=== PATIENT | female | born 1980 | race Caucasian/White ===

== ENCOUNTER 2018-01-08 00:38 | Inpatient (IN) | payer OTHER, MEDICAID ==
[~2018-01-08] VITALS: Ht 157.5 cm; Wt 115.7 kg
--- NOTE | ~2018-01-08 | PROC ---
[address] [address] PROCEDURE REPORT Name: KIMMIE BEDOLLA Room: [address] IN .R.#: [id number] Admission: 01/08/18 Attend Phys: Garth Turcios MD Discharge: Date of : 78 Report #: [id number] THIS REPORT FOR: //name// For GI report, please see the Provation report in Perceptive 7 content. By: 1008Medical Records Staff UMESH /LILLIAN
[~2018-01-08 00:38] MED LIST: ACETAMINOPHEN325 M1 PO; AUGMENTIN 875875 MG PO; CEPHALEXIN 500500 M3 PO; IBUPROFEN 800800 M1 PO; KEFLEX500 MG PO; NORCO 5-325 TA1 EACH PO; NORTRIPTYLINE H10 M1 PO; SYMBICORT160 MCG/4. INH; TUSSIONEX PENN473 ML PO; VENTOLIN HFA 1818 GM INH; ZPAK PO
[2018-01-08 00:48] VITALS: BP 151/85
[2018-01-08 01:31] LABS: HEMATOCRIT 35.2 % (37.0-47.0); HEMOGLOBIN 11.8 gm/dL (12.0-15.0); MCH 27.3 pg (26.0-34.0); MCHC 33.4 g/dL (28.0-37.0); MCV 81.6 fL (80.0-100.0); MPV 7.5 fl. (7.2-11.1); NUCLEATED RBCS 0 /100WBC; PLATELET COUNT* 289 thou/uL (150-400); RBC 4.31 mil/uL (4.20-5.00); RDW-CV 14.6 % (10.5-14.5); WBC 6.5 thou/uL (4.0-11.0)
[2018-01-08 01:40] LABS: CALCIUM 8.7 mg/dL (8.5-10.1); CREATININE 0.6 mg/dL (0.6-1.3); POTASSIUM 4.2 mmol/L (3.5-5.1)
[2018-01-08 01:50] LABS: ALBUMIN 2.9 g/dL (3.4-5.0); TOTAL BILIRUBIN 0.4 mg/dL (<0.1-1.0); TOTAL PROTEIN 7.4 g/dL (6.4-8.2)
[2018-01-08 01:56] LABS: ABSOLUTE LYMPHOCYTES 0.2 thou/uL (0.8-5.3); ABSOLUTE MONOCYTES 0.3 thou/uL (0.0-1.2); PLATELET ESTIMATE ADEQUATE
[2018-01-08 04:16] LABS: URINE BILIRUBIN NEGATIVE (Negative); URINE BLOOD NEGATIVE (Negative); URINE CLARITY CLEAR; URINE COLOR YELLOW; URINE GLUCOSE-RANDOM NEGATIVE (Negative); URINE KETONES 2+ (Negative); URINE LEUKOCYTES-REFLEX NEGATIVE (Negative); URINE NITRITE-REFLEX NEGATIVE (Negative); URINE PROTEIN NEGATIVE (Negative); URINE SPECIFIC GRAVITY <= 1.005 (1.005-1.030); URINE UROBILINOGEN 0.2 E.U./dl (0.2-1.0)
[2018-01-08 04:55] VITALS: BP 109/61
[2018-01-08 05:00] VITALS: BP 141/85
[2018-01-08 09:00] VITALS: BP 117/52
[2018-01-08 11:11] LABS: HEMATOCRIT 31.1 % (37.0-47.0); HEMOGLOBIN 10.4 gm/dL (12.0-15.0); MCH 27.3 pg (26.0-34.0); MCHC 33.4 g/dL (28.0-37.0); MCV 81.6 fL (80.0-100.0); MPV 7.4 fl. (7.2-11.1); NUCLEATED RBCS 0 /100WBC; PLATELET COUNT* 244 thou/uL (150-400); RBC 3.81 mil/uL (4.20-5.00); RDW-CV 14.4 % (10.5-14.5); WBC 4.3 thou/uL (4.0-11.0)
[2018-01-08 11:21] LABS: CALCIUM 7.7 mg/dL (8.5-10.1); CREATININE 0.6 mg/dL (0.6-1.3); POTASSIUM 3.5 mmol/L (3.5-5.1)
[2018-01-08 11:35] LABS: ALBUMIN 2.5 g/dL (3.4-5.0); MAGNESIUM 1.5 mg/dL (1.8-2.4); PHOSPHORUS* 2.4 mg/dL (2.5-4.9); TOTAL BILIRUBIN 0.3 mg/dL (<0.1-1.0); TOTAL PROTEIN 5.9 g/dL (6.4-8.2)
[2018-01-08 11:50] LABS: ABSOLUTE LYMPHOCYTES 0.3 thou/uL (0.8-5.3); ABSOLUTE NEUTROPHILS 3.9 thou/uL (1.6-8.1); PLATELET ESTIMATE ADEQUATE
[2018-01-08 11:51] LABS: ANISOCYTOSIS 1+; POIKILOCYTOSIS 1+
[2018-01-08 16:50] VITALS: BP 116/62
--- NOTE | 2018-01-08 17:06 | NUR ---
PATIENT GIVEN PRN ZOFRAN AND DILAUDID THIS SHIFT FOR PAIN AND VOMITTING. IVF CONTINUES INFUSING, SCHED ABX INFUSED ORDERED. MG REPLACED IV FOR LAB VALUE OF 1.5. PATIENT EATING SMALL AMOUNTS OF CLEAR LIQUIDS. PATIENT VOMITTING X 2 THIS SHIFT. UP AD BRITT.
[2018-01-08 21:38] VITALS: BP 110/58
[2018-01-09 00:31] VITALS: BP 110/58
[2018-01-09 04:11] LABS: HEMATOCRIT 31.4 % (37.0-47.0); HEMOGLOBIN 10.6 gm/dL (12.0-15.0); MCH 27.8 pg (26.0-34.0); MCHC 33.8 g/dL (28.0-37.0); MCV 82.3 fL (80.0-100.0); MPV 7.7 fl. (7.2-11.1); RBC 3.82 mil/uL (4.20-5.00); RDW-CV 14.4 % (10.5-14.5)
[2018-01-09 04:39] LABS: CALCIUM 7.8 mg/dL (8.5-10.1); CREATININE 0.6 mg/dL (0.6-1.3); MAGNESIUM 1.8 mg/dL (1.8-2.4); POTASSIUM 4.3 mmol/L (3.5-5.1)
[2018-01-09 08:00] VITALS: BP 98/54
--- NOTE | 2018-01-09 16:40 | NUR ---
SW met with pt to complete initial assessment, introduce self, and SW role. Pt alert and oriented. Pt lives at home independently. Pt has sisters who lives nearby and can be of support if needed. Pt does not anticipate any dc needs. SW to continue to follow.
[2018-01-09 17:03] VITALS: BP 113/67
[2018-01-10] VITALS: BP 100/63
[2018-01-10 03:56] LABS: HEMATOCRIT 27.8 % (37.0-47.0); HEMOGLOBIN 9.2 gm/dL (12.0-15.0); MCH 27.3 pg (26.0-34.0); MCHC 33.2 g/dL (28.0-37.0); MPV 7.9 fl. (7.2-11.1); RBC 3.39 mil/uL (4.20-5.00); RDW-CV 14.6 % (10.5-14.5); WBC 3.1 thou/uL (4.0-11.0)
[2018-01-10 04:11] LABS: CALCIUM 7.6 mg/dL (8.5-10.1); CREATININE 0.6 mg/dL (0.6-1.3); MAGNESIUM 1.5 mg/dL (1.8-2.4); POTASSIUM 3.9 mmol/L (3.5-5.1)
--- NOTE | 2018-01-10 04:52 | NUR ---
PATIENT SLEPT WELL DURING THIS SHIFT. PT C/O HEADACHE X2 AND RECEIVED FENTANYL 1MG IV X1 AND TYLENOL X1. PT SLEEPING AT THIS TIME. PT UP TO BATHROOM WITH SLOW STEADY GAIT. FLUIDS INFUSING PER DR ORDER. FREQUENTLY USED ITEMS AND CALL LIGHT WITHIN REACH. SIDERAILS UPX2. WILL CONTINUE TO MONITOR.
[2018-01-10 08:00] VITALS: BP 100/53
[2018-01-10 15:41] VITALS: BP 116/72
--- NOTE | 2018-01-10 18:51 | NUR ---
RESUMED CARE THIS AM. ALL CONSULTS CALLED IN. PATIENT TO BE NPO AFTER MIDNIGHT FOR US ABD TOMORROW. NEW IV ACCESS TO LEFT AC, SHAHNAZ IVF AND IV ABT WITHOUT ISSUE. RESTING QUIETLY IN BED, ABLE TO VOICE NEEDS/WANTS, CALL LIGHT IN REACH, PLAN OF CARE REVIEWED WITH PATIENT, DENIES QUESTIONS, PROGRESSING TOWARD GOALS.
[2018-01-10 23:57] VITALS: BP 133/75
[2018-01-11 04:19] LABS: HEMATOCRIT 28.7 % (37.0-47.0); HEMOGLOBIN 9.4 gm/dL (12.0-15.0); MCH 26.8 pg (26.0-34.0); MCHC 32.7 g/dL (28.0-37.0); RBC 3.5 mil/uL (4.20-5.00); RDW-CV 14.4 % (10.5-14.5); WBC 4.2 thou/uL (4.0-11.0)
[2018-01-11 04:49] LABS: ALBUMIN 2.3 g/dL (3.4-5.0); CREATININE 0.5 mg/dL (0.6-1.3); MAGNESIUM 1.6 mg/dL (1.8-2.4); POTASSIUM 3.5 mmol/L (3.5-5.1); TOTAL BILIRUBIN 0.2 mg/dL (<0.1-1.0); TOTAL PROTEIN 5.6 g/dL (6.4-8.2)
--- NOTE | 2018-01-11 06:47 | NUR ---
PT SLEPT OFF AND ON OVERNIGHT, CO LEFT LOW ABD PAIN, IV PAIN MED GIVEN SEVERAL TIMES. UP AD BRITT IN ROOM TO BR TO VOID AND REPORTS LOOSE STOOL. HAS BEEN NPO SINCE MIDNIGHT FOR ABD US. LAC IVF INFUSING PER PUMP, ABX GIVEN ORDERED, MAG INFUSED. AOX4, ABLE TO MAKE NEEDS KNOWN. CLEARS TOLERATED WITHOUT N/V BEFORE NPO STATUS.
[2018-01-11 08:00] VITALS: BP 120/76
--- NOTE | 2018-01-11 11:20 | CON ---
[address] [address] CONSULTATION Name: JAYCEROHANKIMMIE L Room: [address] IN .R.#: [id number] Admission: 01/08/18 Attend Phys: Garth Turcios MD Discharge: Date of : 78 Report #: [id number] THIS REPORT FOR: //name// CC: Garth Prasad DATE OF SERVICE: 01/10/2018 REFERRING PHYSICIAN: Dr. Barraza. REASON FOR CONSULTATION: Left renal mass. HISTORY OF PRESENT ILLNESS: This is a 37-year-old female, admitted with abdominal pain, fever, chills, nausea and vomiting, and back pain. She reports at this time though symptoms are much better. Urology was consulted about an incidentally noted left renal mass. The patient denies any prior history of renal problems. She denies flank pain, hematuria, dysuria or difficulty voiding. She denies any history of urinary tract surgery. PAST MEDICAL HISTORY: As above. Also, has a history of diverticulitis. She states she is otherwise healthy. PAST SURGICAL HISTORY: She says she has had biopsies of pulmonary nodules, biopsy of a thyroid lesion, and resection of a benign abdominal wall mass as well as a jaw surgery. MEDICATION: List is reviewed. FAMILY HISTORY: She does not know of any renal disease in the family. SOCIAL HISTORY: She denies use of tobacco or alcohol. REVIEW OF SYSTEMS: As per history of present illness. No fever or chills. No chest pain, shortness of breath, palpitations. No cough. No weakness. PHYSICAL EXAMINATION: VITAL SIGNS: Temperature 36.8, pulse 80, respirations 14, blood pressure 100/53. GENERAL: This is a 37-year-old female, in no acute distress. She is awake, alert and answers questions appropriately. HEENT: Normocephalic, atraumatic. NECK: Reveals no JVD. Neck is supple. RESPIRATORY: Effort and excursion are normal. CARDIAC: Rhythm is regular. Radial pulses are palpable. EXTREMITIES: Warm. Moves all extremities well. No peripheral edema. ABDOMEN: Soft, nontender, nondistended. Spine [place] [address] CONSULTATION Name: KIMMIE BEDOLLA Room: [address] IN [facility]#: [id number] Admission: 01/08/18 Attend Phys: Garth Turcios MD Discharge: Date of : 78 Report #: [id number] nontender. LABORATORY DATA: Include an unremarkable urinalysis. Sodium 138, potassium 3.9, chloride 103, CO2 is 25, BUN 6, creatinine 0.6, glucose 85. Hemoglobin 9.2, white count 3.1, platelet count 189,000. CT scan of the abdomen and pelvis with contrast reveals from a urologic standpoint a 12 x 16 mm complex mass in the left kidney, which may have some fat content. 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 Findings were discussed with the patient. I advised that the lesion is incompletely characterized by this study and that MRI with contrast would likely be helpful. I explained the reasoning for that and the patient agrees. IMPRESSION: Indeterminate left renal lesion with possible fat content. PLAN: Check MRI of the abdomen with contrast to characterize further. Of note, the patient has had a CT of the chest revealing a thyroid mass and multiple pulmonary nodules. I will defer any further evaluation and management of non-urologic imaging findings on the CT scans to the primary service and any consultants they deem necessary. The patient reports that she has been aware of the nodules in the lung and the thyroid mass and had biopsies of these and been told they were benign. We will follow along. <ELECTRONICALLY SIGNED> By: Stevenson Lynn MD 01/11/18 1120 1454 [id number] Lynn MD /nt
[2018-01-11 16:10] VITALS: BP 130/71
[2018-01-11 21:00] VITALS: BP 122/77
--- NOTE | 2018-01-12 05:29 | NUR ---
PATIENT HAS REMAINED ALERT AND ORIENTED X 4 THROUGHOUT THE SHIFT AND RESTING AT INTERVALS ON HOURLY ROUNDS. UP INDEPENDENTLY IN ROOM. STATED LOOSE BM AT HS. IV PAIN AND NAUSEA MEDS X 2 EACH. VITAL SIGNS STABLE. NPO AT MIDNIGHT FOR TESTING THIS AM. CONTINUE TO MONITOR.
[2018-01-12 08:35] VITALS: BP 108/71
[2018-01-12] MEDS ORDERED: FLAGYL500 MG PO (09:57)
[2018-01-12] MEDS ORDERED: CIPRO500 MG PO (09:57)
[2018-01-12] MEDS ORDERED: LEVSIN0.125 MG PO (09:57)
[2018-01-12] MEDS ORDERED: PHENERGAN 25 MG25 M1 PO (09:57)
--- NOTE | 2018-01-12 10:50 | CON ---
[address] [address] CONSULTATION Name: KIMMIE BEDOLLA Room: [address] IN M.R.#: [id number] Admission: 01/08/18 Attend Phys: Garth Turcios MD Discharge: Date of : 78 Report #: [id number] THIS REPORT FOR: //name// CC: Garth Prasad DATE OF SERVICE: 01/11/2018 REQUESTING PHYSICIAN: Dr. Damon. INDICATION FOR CONSULTATION: Lung nodules. HISTORY OF PRESENT ILLNESS: A 37-year-old female. She has a history of lung nodules. These have been followed in the past by Dr. Rodas and Dr. Nj according to the patient, I do not have records available. The patient has had previous workup done, she states, through our office and also through [facility], and Dr. Rodas has done a bronchoscopy in the past as well. The patient has never had a CT-guided biopsy performed. It is not known to me as to whether fungal markers were performed at some point. At this time, the patient is here with abdominal complaints, has had nausea, vomiting as well as abdominal pain as well as diarrhea. She does not have any respiratory complaints at this time. REVIEW OF SYSTEMS: The patient has had disturbed sleep at night as well as sleepiness during the day. She does not have calf pain. She denies any cough, shortness of breath or upper respiratory complaints. She did have a fever up to 37.9 degrees Celsius earlier this admission. PAST MEDICAL HISTORY: Lung nodules as described above, , joint surgery, tonsillitis requiring endotracheal intubation in 2014, migraines, abdominal mass resection. I do not have records available, the patient states that this was benign. There is also an incidental finding of a left renal mass on the most recent CT abdomen. SOCIAL HISTORY: Lifetime nonsmoker. No known history of heavy alcohol use or illegal drug use. CURRENT MEDICATIONS: List in [employer], reviewed. ALLERGIES: No known drug allergies. PHYSICAL EXAMINATION: GENERAL: Alert, awake and oriented. VITAL SIGNS: In the records reviewed. HEENT: There is no throat erythema. [place] [address] [address] CONSULTATION Name: KIMMIE BEDOLLA Room: [address]#: [id number] Admission: 01/08/18 Attend Phys: Garth Turcios MD Discharge: Date of : 78 Report #: [id number] NECK: Does not show raised JVP. CHEST: Clear to auscultation. HEART: Regular, no murmur. ABDOMEN: Soft. LOWER EXTREMITIES: Show no edema, no calf tenderness. LABORATORY DATA: The patient's lab work as well as CT of the chest as well as abdomen and pelvis films are in the records and reviewed. The patient's CT chest films are also reviewed. ASSESSMENT AND PLAN: 1. Multiple lung nodules. There are large lung nodules noted bilaterally. The largest one of these appears to be more than 2 cm in size. The patient has had previous workup through our office as well as [facility] as discussed above. I do not, however, have these records available. The patient says that she has previously also had a PET scan at [facility]. I do not have the same available at this time either. At this time, it appears likely to me that these nodules are secondary to a fungal infection, possibly an old already healed fungal infection leading to scarring. Based on the data available to me, I cannot rule out a metastatic malignancy. However, if the patient has had workup at [facility] previously as she describes then it appears likely that this was ruled out or considered unlikely. At this time, I would go ahead and obtain the last CT films from [facility] and will request the radiologist to compare. If the patient has not previously had fungal markers, then obtaining fungal serologies as well as urine for histoplasma antigen would be reasonable. In case there is a significant worsening of her lung nodules compared with previous CT, then in that case it should be possible to biopsy one of these nodules which is next to the pleura. An alternate approach, in case there is in fact worsening, will be to obtain a repeat PET scan, but we would start by obtaining previous records and obtaining comparison first. 2. Hypersomnia. Her history is consistent with obstructive sleep apnea. Suggest obtaining an outpatient sleep study, would also benefit from weight loss. 3. Renal mass/past medical history of resection of an abdominal mass, see discussion above. The Urology Service is evaluating now. 4. Nausea, vomiting, diarrhea/abdominal pain. Management deferred to other services. [address] [place] [address] CONSULTATION Name: KIMMIE BEDOLLA Room: [address] IN M.R.#: [id number] Admission: 01/08/18 Attend Phys: Garth Turcios MD Discharge: Date of : 79 Report #: [id number] Thanks for this consultation. <ELECTRONICALLY SIGNED> By: Mary Sheffield MD 01/12/18 1050 1151 [id number] Morse MD /nt
[2018-01-12 11:19] VITALS: BP 108/71; BP 110/72
[2018-01-12 13:34] VITALS: BP 110/72
[2018-01-12 13:36] LABS: % SATURATION 11 % (20-39); IRON 23 ug/dL (50-175)
[2018-01-12 15:18] VITALS: BP 110/72
[2018-01-12 15:40] VITALS: BP 100/57
[2018-01-12] MEDS ORDERED: PROTONIX40 M1 PO (16:47)
--- NOTE | 2018-01-12 16:52 | NUR ---
PATIENT DOWN FOR EGD THIS AFTERNOON, ESOPHAGITIS AND HIATAL HERNIA NOTED. PROTONIX ORDERED BID PER GI. SCHED IV ABX INFUSED ORDERED. PATIENT REQUESTING PRN DILAUDID AND ZOFRAN FOR PAIN AND NAUSEA. ABD MRI THIS EVENING, AWAITING RESULTS. PATIENT GIVEN CLEAR LIQUIDS AFTER RETURNING FROM TEST AND IF TOLERATING CAN ADVANCE TO REG DIET. IF PATIENT ABLE TO TOLERATE REG DIET AND MRI RESULTS NEGATIVE THEN PATIENT MAY DISCHARGE HOME. VITALS STABLE AFTER RETURNING FROM PACU AND MRI.
[2018-01-12 21:43] VITALS: BP 125/76
--- NOTE | 2018-01-13 05:57 | NUR ---
PT SLEPT WELL OVERNIGHT, AWAKENED ONCE REQUESTING TYLENOL AND ZOFRAN-GIVEN. NO EMESIS, PT STATES SHE TOLERATED REGULAR DINNER IN SMALL AMOUNTS WITHOUT EMESIS. LAC SL, ABX GIVEN ORDERED. AM LAB DRAWN. POSSIBLE DC HOME TODAY. UP AD BRITT IN ROOM WITHOUT DIFFICULTY, UP TO BATHROOM TO VOID.ABLE TO USE CALL LITE AND MAKE NEEDS KNOWN.
[2018-01-13 07:35] VITALS: BP 98/59
--- NOTE | 2018-01-13 10:20 | NUR ---
PATIENT TOLERATED REG DIET THIS AM. NO COMPLAINTS OF PAIN OR NAUSEA. IV DC'D. VERBALIZES UNDERSTANDING OF PAPERWORK, SCRIPTS CALLED INTO [facility] PER PATIENT REQUEST. PATIENT AMBULATED OUT OF HOSPITAL WITH THIS NURSE AND ALL BELONGINGS.
--- NOTE | 2018-01-20 16:18 | CON ---
[address] [address] CONSULTATION Name: JAYCEROHANKIMMIE Room: [address] IN .R.#: [id number] Admission: 01/08/18 Attend Phys: Garth Turcios MD Discharge: 01/13/18 Date of : 78 Report #: [id number] THIS REPORT FOR: //name// CC: Garth Prasad DATE OF SERVICE: 01/12/2018 ADDENDUM REASON FOR CONSULT: Abdominal pain, nausea, vomiting and dyspepsia. I have personally seen and examined the patient and reviewed labs and imaging. The patient with a history of migraine headaches who takes ibuprofen at least 3-4 times a week. She presented with abdominal pain and had a CT, which was suggestive of left-sided diverticulitis. She has been on antibiotics since admission. She also complains of nausea, vomiting, early satiety and dyspepsia. She reports that most times she cannot tolerate solids. These symptoms have been going on for a couple of weeks. We will consider upper endoscopy to further evaluate her upper GI symptoms and also her anemia. She will need a colonoscopy in 6 weeks since she has had a diverticulitis in this admission. We will make further recommendation when her upper endoscopy is complete. <ELECTRONICALLY SIGNED> By: Richard Farrell MD 01/20/18 1618 1416 0031Richard Farrell MD /noah
--- NOTE | 2018-01-20 16:18 | CON ---
[address] [address] CONSULTATION Name: KIMMIE BEDOLLA Room: [address] IN M.R.#: [id number] Admission: 01/08/18 Attend Phys: Garth Turcios MD Discharge: 01/13/18 Date of : 78 Report #: [id number] THIS REPORT FOR: //name// CC: Garth Prasad DO DICTATED BY: Cindy Silveira [facility] DATE OF SERVICE: 01/12/2018 Please note at the time of this dictation, the patient was seen and physically examined by myself. REASON FOR CONSULTATION: Abdominal pain, nausea and vomiting. HISTORY OF PRESENT ILLNESS: This is a 37-year-old female who presented to the Emergency Room starting last Friday, she started having some abdominal pain, some slight nausea and vomiting. 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 She was also noting to have a little bit of diarrhea. She states her symptoms progressively gotten worse and she noticed an intermittent fever. She started having besides epigastric, she was also having some left lower quadrant pain as well. In talking with the patient, she used to take ibuprofen daily for a very long time for headaches. Now, she takes 800 mg ibuprofen several times a week for her headaches, which seemed to manage them at this time. The patient states she thinks years ago, she had an EGD or colonoscopy, she does not recall where or when or what the findings were. The patient states with her nausea and vomiting, she has not noticed any bright red blood or any coffee-ground emesis, nor with her loose stools as well. ALLERGIES: No known drug allergies. MEDICATIONS FROM HOME: She was only on nortriptyline, which has helped with her abdominal pain. PAST MEDICAL HISTORY: History of migraines. PAST SURGICAL HISTORY: Jaw surgery, and tonsillitis back in 2013. FAMILY HISTORY: Maternal great grandmother, ovarian cancer. SOCIAL HISTORY: Denies any alcohol, tobacco or illegal drug use. REVIEW OF SYSTEMS: Twelve-point review of systems is essentially negative except what [place] [address] CONSULTATION Name: KIMMIE BEDOLLA Room: [address]#: [id number] Admission: 01/08/18 Attend Phys: Garth Turcios MD Discharge: 01/13/18 Date of : 78 Report #: [id number] PHYSICAL EXAMINATION: VITAL SIGNS: Temperature 36.8, pulse 90, respirations 18, blood pressure 108/71. HEART: Regular rate and rhythm. LUNGS: Clear. ABDOMEN: Soft, positive bowel sounds in all 4 quadrants with epigastric and left lower quadrant tenderness noted to palpation. LABORATORY DATA: Hemoglobin on admission was 10.6. She is 9.4, hematocrit 28.6, white count is 4.2, platelets 225. PT 14.2, INR 1.1. Sodium 138, potassium 3.5, chloride 104, CO2 25, BUN is 5, creatinine 0.8, GFR is 138, glucose is 89. Total bilirubin 0.2, alkaline phosphatase 90, ALT 22, AST is 25. CT of the abdomen and pelvis showed stranding in the sigmoid and descending colon with the cyst noted on her kidney. Ultrasound showed her CBD to be questionable dilated and fatty infiltration of the liver. IMPRESSION: 1. Abdominal pain, both epigastric and left lower quadrant. 2. Nausea and vomiting remains ongoing. 3. Non-steroidal antiinflammatory drug use secondary to chronic headaches. 4. Anemia. 5. Chronic headaches. 6. Family history of ovarian cancer. PLAN: 1. EGD today with Dr. Farrell. 2. We will continue her Levaquin and Flagyl antibiotics. 3. Labs for her anemia, B12, ferritin and iron studies. 4. Office visit in 4 weeks. 5. To be scheduled at that time for 6 weeks. 6. Further recommendations to be made once the procedure has been performed. Thank you for allowing us to participate in this patient's care. Please do not hesitate to call with any questions in regard to this consult. ADDENDUM REASON FOR CONSULT: Abdominal pain, nausea, vomiting and dyspepsia. I have personally seen and examined the patient and reviewed labs and imaging. The patient with a history of migraine headaches who takes ibuprofen at least 3-4 times a week. She presented with abdominal pain and had a CT, which was suggestive of left-sided diverticulitis. She has been on antibiotics since admission. She also complains of nausea, vomiting, early satiety and dyspepsia. [address] [place] [address] CONSULTATION Name: KIMMIE BEDOLLA Room: [address] IN M.R.#: [id number] Admission: 01/08/18 Attend Phys: Garth Turcios MD Discharge: 01/13/18 Date of : 78 Report #: [id number] She reports that most times she cannot tolerate solids. These symptoms have been going on for a couple of weeks. We will consider upper endoscopy to further evaluate her upper GI symptoms and also her anemia. She will need a colonoscopy in 6 weeks since she has had a diverticulitis in this admission. We will make further recommendation when her upper endoscopy is complete. <ELECTRONICALLY SIGNED> By: Richard Farrell MD 01/20/18 1618 1219 1951Richard Farrell MD /nt
--- NOTE | 2018-04-01 16:08 | PATH ---
[address] [address] PATHOLOGY RPT PROCEDURE Name: LENNIE BEDOLLA Room: [address] IN M.R.#: [id number] Admission: 01/08/18 Date of : 78 Discharge: 01/13/18 Report #: [id number] Path Case #: [id number] [facility] Accession Number: [id number] . 01 Material submitted: . DUODONAL BIOPSY . 01 Clinical history: . None provided . 02 Diagnosis: Duodenal biopsy: - Mild nonspecific active duodenitis with regenerative features, negative for granulomas, viral inclusions and dysplasia (see comment). [facility]/01/13/2018 . 02 Comment: The biopsies show some villous flattening which can be seen in celiac sprue; however, is also attributable to inflammation and, because there is no significant intraepithelial lymphocytosis, celiac sprue is felt to be unlikely. (NANCY:pit; 01/13/2018) . 02 Electronically signed: . Berlin Casarez MD, Pathologist NPI- [id number] . 01 Gross description: . Received in formalin labeled "GlenisLennie, duodenal biopsy, rule out celiac sprue," are 3 segments of vigil soft tissue measuring 0.9 x 0.4 x 0.3 cm in aggregate dimensions and ranging from 0.3 to 0.5 cm in maximum dimension. The specimen is submitted entirely in cassette A1. (TSD; 01/12/2018) TOB/TOB . 02 Pathologist provided ICD-10: K29.80 . 02 CPT . 773488 Performed at: [address] [facility] [address], [place], [place] [id number] MD Fawad Owens MD Phone: [phone] Performed at: [address] [facility] [address] [place], [place] [id number] MD Berlin Casarez MD Phone: [phone]
== END 2018-01-13 10:21 | disposition home or self-care (01) | DRG 872 ==
LOC: M.ERS 00:38 → M.3W 04:02 → M.TBA-ER 04:02 → M.3W 05:02
PROVIDERS: Emergency Medicine; Family Medicine; Internal Medicine; Nurse Practitioner Adult Health; ADMIT Internal Medicine
PROC: 0DB98ZX Excision of Duodenum, Via Natural or Artificial Opening Endoscopic, Diagnostic (ICD-10-PCS; principal; 2018-01-12)
PROC: 0DB38ZX Excision of Lower Esophagus, Via Natural or Artificial Opening Endoscopic, Diagnostic (ICD-10-PCS; principal; 2018-01-12)
DX: A41.9 Sepsis, unspecified organism (principal); K57.32 Diverticulitis of large intestine without perforation or abscess without bleeding; Z68.42 Body mass index [BMI] 45.0-49.9, adult; G43.909 Migraine, unspecified, not intractable, without status migrainosus; E04.1 Nontoxic single thyroid nodule; D17.71 Benign lipomatous neoplasm of kidney; K90.0 Celiac disease; K21.0 Gastro-esophageal reflux disease with esophagitis; K44.9 Diaphragmatic hernia without obstruction or gangrene; E66.9 Obesity, unspecified; E83.42 Hypomagnesemia; R91.8 Other nonspecific abnormal finding of lung field; G47.10 Hypersomnia, unspecified; D64.9 Anemia, unspecified; Z79.2 Long term (current) use of antibiotics; Z79.899 Other long term (current) drug therapy; Z98.890 Other specified postprocedural states; Z88.0 Allergy status to penicillin; Z79.1 Long term (current) use of non-steroidal anti-inflammatories (NSAID); Z80.41 Family history of malignant neoplasm of ovary

== ENCOUNTER 2018-04-07 22:16 | Inpatient (IN) | payer OTHER, MEDICAID ==
[~2018-04-07] VITALS: Ht 157.5 cm; Wt 134.7 kg
[~2018-04-07 22:16] MED LIST changes: +CIPRO500 MG PO; +FLAGYL500 MG PO; +LEVSIN0.125 MG PO; +PHENERGAN 25 MG25 M1 PO; +PROTONIX40 M1 PO
[2018-04-07 22:20] VITALS: BP 146/88
[2018-04-07] MEDS ORDERED: BENTYL 20 MG TA20 M1 PO (22:27)
[2018-04-07 23:05] LABS: ABSOLUTE BASOPHILS 0.1 thou/uL (0.0-0.2); ABSOLUTE EOSINOPHILS 0.1 thou/uL (0.0-0.7); ABSOLUTE LYMPHOCYTES 1.5 thou/uL (0.8-5.3); ABSOLUTE MONOCYTES 0.6 thou/uL (0.0-1.2); ABSOLUTE NEUTROPHILS 3.5 thou/uL (1.6-8.1); EOSINOPHILS 1.2 %; HEMATOCRIT 31.7 % (37.0-47.0); HEMOGLOBIN 10.3 gm/dL (12.0-15.0); LYMPHOCYTES 26.2 %; MCH 26.5 pg (26.0-34.0); MCHC 32.4 g/dL (28.0-37.0); MCV 81.7 fL (80.0-100.0); MONOCYTES 10.7 %; MPV 8.1 fl. (7.2-11.1); NUCLEATED RBCS 0 /100WBC; PLATELET COUNT* 307 thou/uL (150-400); POLYS 60.9 %; RBC 3.88 mil/uL (4.20-5.00); RDW-CV 15.2 % (10.5-14.5); WBC 5.8 thou/uL (4.0-11.0)
[2018-04-07 23:06] LABS: INR 1.1; PROTIME 11.2 Seconds (9.20-11.50)
[2018-04-07 23:11] LABS: ANION GAP 6 mmol/L (7-16); BUN 10 mg/dL (7-18); CALCIUM 8.7 mg/dL (8.5-10.1); CHLORIDE 105 mmol/L (98-107); CO2 27 mmol/L (21-32); CREATININE 0.6 mg/dL (0.6-1.3); GLUCOSE 103 mg/dL (70-99); SODIUM 138 mmol/L (136-145)
[2018-04-07 23:21] LABS: ALBUMIN 3.2 g/dL (3.4-5.0); ALKALINE PHOSPHATASE 84 U/L (46-116); LIPASE 96 U/L (73-393); NT-PRO BRAIN NAT PEPTIDE 190 pg/mL (<300); SGOT 19 U/L (15-37); SGPT 23 U/L (30-65); TOTAL BILIRUBIN 0.2 mg/dL (<0.1-1.0); TOTAL PROTEIN 6.9 g/dL (6.4-8.2); TROPONIN-I LEVEL <0.06 ng/mL (<0.06)
[2018-04-08] VITALS (7 sets, daily range): BP systolic 109–137; BP diastolic 60–82
--- NOTE | 2018-04-08 02:02 | NUR ---
PT ALERT ORIENTED. ADMIT TO ROOM 219 AT 0030. DENIES CP OR DISCOMFORT. STATES HEAD ACHE /10 WORST ONE SHE HAS EVER HAD. DR HEATH NOTIFIED VIA YOU CALL MD. MORPHINE GIVEN, ROOM DARKENED, COLD WASH CLOTH FOR HEAD. PT RATES PAIN 11/11. TELEM, SHOWS SR. LARRY LOWER EXTREM EDEMA +3-4 R LEG > THAN L LEG.
--- NOTE | 2018-04-08 05:43 | NUR ---
PT RESTING QUIETLY TONIGHT. SHE STATED SHE FELT MUCH BETTER.
--- NOTE | 2018-04-08 10:56 | NUR ---
Pt is A&O. Resides at home. 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 No DME. No hx of HH or SNF. Goal is to return home at tn. Following.
--- NOTE | 2018-04-08 13:39 | NUR ---
Nutrition: Consult for "other." Pt admitted with chest pain. Regular diet. BG 103, alumin 3.2. Pt stated her usual wt is 285#. Right now, she has some fluid-retention in BLE. She stated her condition is not cardiac related. She denied need or desire for nutrition education. Encouraged pt to call with any nutritional needs. She stated good appetite. Mild risk.
--- NOTE | 2018-04-08 13:56 | EKG ---
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1980 Requested By: Alonzo Kenney Order Number: [id number] MD: Stevenson Phillips Measurements Intervals [place] Rate: 91 P: 60 CT: 152 QRS: 15 QRSD: 104 T: 17 QT: 332 QTc: 409 Interpretive Statements Sinus rhythm Low voltage, precordial leads Borderline T abnormalities, anterior leads Compared to ECG 11/08/2013 10:35:32 Low QRS voltage now present T-wave abnormality now present Electronically Signed On 04-08-2018 13:56:36 CDT by Stevenson Phillips [email or web address] <ELECTRONICALLY SIGNED> By: Stevenson Phillips MD, [facility] 04/08/18 1356 2221 2221 Stevenson Phillips MD, [facility] /EPI
--- NOTE | 2018-04-08 15:34 | 2DMMODE ---
[place] [address] 2 D/M-MODE ECHOCARDIOGRAM Name: KIMMIE BEDOLLA Room: [address] IN [facility]#: [id number] Admission: 04/07/18 Attend Phys: Garth Turcios, Discharge: Date of : 78 Date of Service: 04/08/18 1534 Report #: [id number] THIS REPORT FOR: //name// APPROVED REPORT Study performed: 04/08/2018 14:02:38 EXAM: Comprehensive 2D, Doppler, and color-flow Echocardiogram Patient Location: In-Patient Room #: [facility] Status: routine BSA: 2.26 HR: 69 bpm BP: 137/79 mmHg Rhythm: NSR Other Information Study Quality: Good Indications Dyspnea Chest Pain 2D Dimensions LVEF(%): 63.94 (>50%) IVSd: 11.40 (7-11mm) LVOT Diam: 20.13 (18-24mm) LVDd: 49.25 mm PWd: 10.87 (7-11mm) Ascending Ao: 29.25 (22-36mm) LVDs: 32.07 (25-40mm) Aortic Root: 30.46 mm Bajwa's LVEF: 63.94 % Volumes Left Atrial Volume (Systole) LA ESV Index: 22.70 mL/m2 Aortic Valve AoV Peak Manuel.: 1.59 m/s AO Peak Gr.: 10.10 mmHg LVOT Max P.88 mmHg AO Mean Gr.: 5.43 mmHg LVOT Mean P.04 mmHg LVOT Max V: 1.21 m/s AO V2 VTI: 27.26 cm LVOT Mean V: 0.80 m/s ARI (VTI): 2.98 cm2 LVOT V1 VTI: 25.53 [place] [address] 2 D/M-MODE ECHOCARDIOGRAM Name: KIMMIE BEDOLLA Room: [address] IN .R.#: [id number] Admission: 04/07/18 Attend Phys: Garth Turcios, Discharge: Date of : 78 Date of Service: 04/08/18 1534 Report #: [id number] E/A Ratio: 1.27 MV Decel. Time: 145.04 ms MV E Max Manuel.: 0.88 m/s MV PHT: 42.06 ms MVA (PHT): 5.23 cm2 TDI E/Lateral E': 5.18 E/Medial E': 5.18 Medial E' Manuel.: 0.17 m/s Lateral E' Manuel.: 0.17 m/s Pulmonary Valve PV Peak Manuel.: 1.12 m/s PV Peak Gr.: 5.03 mmHg Tricuspid Valve RAP Estimate: 5.00 mmHg TR Peak Gr.: 24.75 mmHg RVSP: 29.75 mmHg PA Pressure: 29.75 mmHg Left Ventricle The left ventricle is normal size. There is normal LV segmental wall motion. There is normal left ventricular wall thickness. Left ventricular systolic function is normal. The left ventricular ejection fraction is within the normal range. LVEF is 60-65%. The left ventricular diastolic function is normal. Right Ventricle The right ventricle is normal size. The right ventricular systolic function is normal. Atria The left atrium size is normal. The right atrium size is normal. Aortic Valve The aortic valve is normal in structure. No aortic regurgitation is present. There is no aortic valvular stenosis. Mitral Valve The mitral valve is normal in structure. Trace mitral regurgitation. No evidence of mitral valve stenosis. Tricuspid Valve The tricuspid valve is normal in structure. Mild tricuspid regurgitation. [place] [address] 2 D/M-MODE ECHOCARDIOGRAM Name: KIMMIE BEDOLLA Room: [address] IN [facility]#: [id number] Admission: 04/07/18 Attend Phys: Garth Turcios, Discharge: Date of : 78 Date of Service: 04/08/18 1534 Report #: [id number] Pulmonic Valve The pulmonary valve is normal in structure. There is no pulmonic valvular regurgitation. Great Vessels The aortic root is normal in size. IVC is normal in size and collapses with >50% inspiration Pericardium There is no pericardial effusion. <Conclusion> The left ventricle is normal size. There is normal left ventricular wall thickness. Left ventricular systolic function is normal. The left ventricular ejection fraction is within the normal range. LVEF is 60-65%. The left ventricular diastolic function is normal. The right ventricle is normal size. The left atrium size is normal. The aortic valve is normal in structure. The mitral valve is normal in structure. The tricuspid valve is normal in structure. IVC is normal in size and collapses with >50% inspiration There is no pericardial effusion. There is normal LV segmental wall motion. <ELECTRONICALLY SIGNED> By: Stevenson Phillips MD, FACC 04/08/18 1534 1534 1534 Stevenson Phillips MD, FACC /INF
--- NOTE | 2018-04-08 18:00 | NUR ---
pt denies pain currently. headache was resolved with meds given this am before ct. pt up ad joey in room. tele sr. pt able to make needs known, call light in reach
--- NOTE | 2018-04-09 00:27 | NUR ---
RECEIVED REPORT AND ASSUMED CARE OF PATIENT AT 1930. ACCOUNT FINANCIAL MANAGER IN PLACE TRACING ST. ASSESSMENT AND VITALS COMPLETED CHARTED, VSS ON ROOM AIR. PATIENT DENIES C/O CHEST PAIN AT THIS TIME BUT DID REPORT SOME HEARTBURN AND REQUESTING PROTONIX. PROTONIX ADMINISTERED PER OCT. PATIENT DENIES ANY FURTHER NEEDS AT THIS TIME. GOAL IS TO REMAIN FREE OF CHEST PAIN AND DISCOMFORT. CALL LIGHT WITHIN REACH
[2018-04-09 00:33] VITALS: BP 133/68
[2018-04-09 04:00] VITALS: BP 130/66
--- NOTE | 2018-04-09 05:10 | NUR ---
PATIENT PROGRESSING TOWARDS GOALS: PATIENT CONTINUES TO DENIES CHEST PAIN AND DISCOMFORT. PATIENT HAS RESTED COMFORTABLY THROUGHOUT SHIFT. HOURLY ROUNDING OBSERVED. CALL LIGHT WITHIN REACH
[2018-04-09 07:45] VITALS: BP 118/74
--- NOTE | 2018-04-09 10:44 | NUR ---
RECEIVED REPORT FROM LAURA MUNROE. ASSUMED CARE OF PT AROUND 0730. PT A&O X4. VSS. O2 SAT 96% ON RA. LAND MANAGEMENT FORESTER IN PLACE TRACING SR. AM ASSESSMENT AND VITALS COMPLETED CHARTED. IV TO RIGHT FA INTACT AND SALINE LOCKED. PT REPORTS HEADACHE IS NOW 1/10, AND DOES NOT NEED ANY FURTHER INTERVENTIONS FOR PAIN. PT EATING AND DRINKING WITHOUT ISSUE. US BLE NEGATVIE. PT HOPING TO DC THIS AFTERNOON. PT CURRENTLY RESTING IN BED WATCHING TV. FALL PRECAUTIONS IN PLACE. CALL LIGHT IS WITHIN REACH, HOURLY ROUNDING PERFORMED. WCTM.
[2018-04-09] MEDS ORDERED: LEVAQUIN 500 M500 M3 PO (10:51)
[2018-04-09] MEDS ORDERED: LASIX 20 MG TAB20 MG PO (10:54)
[2018-04-09] MEDS ORDERED: KLOR-CON 1010 MEQ PO (10:54)
[2018-04-09 11:19] VITALS: BP 118/74
--- NOTE | 2018-04-09 12:02 | NUR ---
DISCHARGE ORDERS RECEIVED. DISCHARGE COMPELTED DOCUMENTED. DISCHARGE SUMMARY, CARE NOTES, AND SCRIPTS GONE OVER WITH PT. PT COMMUNICATES UNDERSTANDING. SCRIPTS GIVEN. CARE NOTES GIVEN. ALL BELONGINGS GATHERED AND SENT HOME WITH PT. IV AND DIRECTOR SOCIAL REMOVED. VSS AT TIME OF DC. PT LEFT UNIT WITH NURSING STAFF. PT LEFT HOSPITAL IN HER OWN CAR BY HERSELF.
== END 2018-04-09 12:06 | disposition home or self-care (01) | DRG 204 ==
LOC: M.ERS 22:16 → M.2W 23:48 → M.TBA-ER 23:48 → M.2W 04-08 00:30
PROVIDERS: Emergency Medicine; ADMIT Internal Medicine
DX: R07.81 Pleurodynia (principal); J40 Bronchitis, not specified as acute or chronic; G43.909 Migraine, unspecified, not intractable, without status migrainosus; I87.8 Other specified disorders of veins; Z98.891 History of uterine scar from previous surgery; Z79.899 Other long term (current) drug therapy; Z91.041 Radiographic dye allergy status

== ENCOUNTER 2018-12-09 13:47 | Emergency (ER) | payer OTHER, MEDICAID ==
[~2018-12-09] VITALS: Ht 157.5 cm; Wt 129.3 kg
[~2018-12-09 13:47] MED LIST changes: +BENTYL 20 MG TA20 M1 PO; +KLOR-CON 1010 MEQ PO; +LASIX 20 MG TAB20 MG PO; +LEVAQUIN 500 M500 M3 PO
[2018-12-09 14:11] LABS: URINE BILIRUBIN NEGATIVE (Negative); URINE BLOOD 1+ (Negative); URINE CLARITY CLEAR; URINE COLOR YELLOW; URINE GLUCOSE-RANDOM NEGATIVE (Negative); URINE KETONES TRACE (Negative); URINE LEUKOCYTES-REFLEX NEGATIVE (Negative); URINE NITRITE-REFLEX NEGATIVE (Negative); URINE PROTEIN NEGATIVE (Negative); URINE UROBILINOGEN 0.2 E.U./dl (0.2-1.0)
[2018-12-09 14:21] LABS: ABSOLUTE BASOPHILS 0.1 thou/uL (0.0-0.2); ABSOLUTE EOSINOPHILS 0.2 thou/uL (0.0-0.7); ABSOLUTE LYMPHOCYTES 1.3 thou/uL (0.8-5.3); ABSOLUTE MONOCYTES 0.8 thou/uL (0.0-1.2); ABSOLUTE NEUTROPHILS 7.3 thou/uL (1.6-8.1); BASOPHILS 0.9 %; EOSINOPHILS 1.9 %; HEMATOCRIT 32.2 % (37.0-47.0); HEMOGLOBIN 10.3 gm/dL (12.0-15.0); LYMPHOCYTES 13.8 %; MCH 25.1 pg (26.0-34.0); MCHC 32.1 g/dL (28.0-37.0); MCV 78.4 fL (80.0-100.0); MONOCYTES 7.8 %; MPV 7.7 fl. (7.2-11.1); NUCLEATED RBCS 0 /100WBC; PLATELET COUNT* 387 thou/uL (150-400); POLYS 75.6 %; RBC 4.11 mil/uL (4.20-5.00); RDW-CV 15.6 % (10.5-14.5); WBC 9.6 thou/uL (4.0-11.0)
[2018-12-09 14:22] LABS: BACTERIA-REFLEX 1-9 Few /HPF (None Seen); CASTS None Seen /LPF (None Seen); CRYSTALS None Seen /LPF (None Seen); MUCUS None Seen strn/LPF (None Seen); SQUAMOUS >10 Many /LPF (0-3); URINE RBC 3-10 Few /HPF (0-2); URINE WBC-REFLEX 0-5 Rare /HPF (0-5)
[2018-12-09 14:24] LABS: CALCIUM 8.8 mg/dL (8.5-10.1); CREATININE 0.7 mg/dL (0.6-1.3); POTASSIUM 3.4 mmol/L (3.5-5.1)
[2018-12-09 14:29] LABS: ALBUMIN 3.1 g/dL (3.4-5.0); TOTAL BILIRUBIN 0.3 mg/dL (<0.1-1.0); TOTAL PROTEIN 7.7 g/dL (6.4-8.2)
[2018-12-09] MEDS ORDERED: FLAGYL500 M1 PO (16:51)
[2018-12-09] MEDS ORDERED: NORCO 5-325 TA1 EACH PO (16:51)
[2018-12-09] MEDS ORDERED: CIPRO500 M1 PO (16:51)
[2018-12-09 17:46] VITALS: BP 102/50
== END 2018-12-09 17:47 | disposition home or self-care (01) ==
LOC: M.ERS 13:47
PROVIDERS: Nurse Practitioner Family
DX: K57.92 Diverticulitis of intestine, part unspecified, without perforation or abscess without bleeding (principal); R11.2 Nausea with vomiting, unspecified; G43.909 Migraine, unspecified, not intractable, without status migrainosus; Z91.041 Radiographic dye allergy status; Z88.8 Allergy status to other drugs, medicaments and biological substances; Z98.890 Other specified postprocedural states

== ENCOUNTER 2018-12-26 22:10 | Inpatient (IN) | payer OTHER, MEDICAID ==
[~2018-12-26] VITALS: Ht 157.5 cm; Wt 134.3 kg
--- NOTE | ~2018-12-26 | CON ---
[address] [address] CONSULTATION Name: KIMMIE BEDOLLA Room: [address] IN M.R.#: [id number] Admission: 12/27/18 Attend Phys: Divya Ceballos MD Discharge: Date of : 78 Report #: [id number] THIS REPORT FOR: //name// CC: Eugenio Ceballos MD DATE OF SERVICE: 12/27/2018 REQUESTING PHYSICIAN: Dr. Divya Ceballos. REASON FOR CONSULTATION: Left lower quadrant abdominal pain. HISTORY OF PRESENT ILLNESS: This is a 38-year-old female with history of diverticulitis and previous admission back in 01/2018 for the same. The patient also has history of gastroesophageal reflux disease with grade D esophagitis. The patient reports that for the past 3 weeks, she has had symptoms of left lower quadrant abdominal pain and diagnosis of diverticulitis, which would be her third attack in the 1-year period. She tried p.o. antibiotics from our office, but did not get better. Therefore, she was admitted to the hospital with persistent pain and worsening symptoms. The patient's last colonoscopy was a year ago, which showed diverticulosis and hemorrhoids. PAST MEDICAL HISTORY: Significant for history of recurrent diverticulitis, bronchitis, cellulitis and gastroesophageal reflux disease. ALLERGIES: SIGNIFICANT TO CONTRAST DYE AND TOPIRAMATE. MEDICATIONS: Please refer to MAR. SOCIAL HISTORY: The patient lives at home. Denies tobacco or alcohol use. FAMILY HISTORY: Noncontributory. PHYSICAL EXAMINATION: VITAL SIGNS: Reveals blood pressure of 116/75, respiration is 16, pulse 69 and temperature 97.7. LUNGS: Clear. CARDIOVASCULAR: Regular. ABDOMEN: Soft, tender to palpation in the left lower quadrant. Bowel sounds are positive. NEUROLOGIC: The patient is alert [place] 3[place] [address] CONSULTATION Name: KIMMIE BEDOLLA Room: [address] IN [facility]#: [id number] Admission: 12/27/18 Attend Phys: Divya Ceballos MD Discharge: Date of : 78 Report #: [id number] LABORATORY DATA: Labs reveal sodium of 140, potassium 3.3, BUN is 12, creatinine 1.0 and glucose 118. Liver function tests all within normal limits. WBC 6.1 with hemoglobin of 10.2 and platelets of 470,000. IMAGING: CT of abdomen and pelvis was obtained. This was significant for interval improvement of acute diverticulitis of sigmoid colon, with some residual surrounding inflammation. There was a non-obstructive 2-3 mm inferior right renal calculus. There was also a 1.5-cm exophytic lesion of the mid left kidney, which is unchanged compared to a year ago. There are also multiple bilateral pulmonary nodules measuring 2 mm in size, which are unchanged since a year ago. ASSESSMENT AND PLAN: The patient with recurrent diverticulitis, with 3 episodes of this in the past 1 year. She is scheduled for colonoscopy with tattooing the segment of her colon. Meanwhile, I will put her on MiraLax 17 grams p.o. b.i.d. Advance her diet to low residue as tolerated and we will perform colonoscopy with tattooing in 4 weeks. By: [id number] Farrell MD /nt
[~2018-12-26 22:10] MED LIST changes: +CIPRO500 M1 PO; +FLAGYL500 M1 PO
[2018-12-26 22:15] VITALS: BP 159/97
[2018-12-26 22:47] LABS: URINE BILIRUBIN NEGATIVE (Negative); URINE BLOOD 2+ (Negative); URINE CLARITY CLEAR; URINE COLOR YELLOW; URINE GLUCOSE-RANDOM NEGATIVE (Negative); URINE KETONES TRACE (Negative); URINE LEUKOCYTES-REFLEX NEGATIVE (Negative); URINE NITRITE-REFLEX NEGATIVE (Negative); URINE PROTEIN TRACE (Negative); URINE SPECIFIC GRAVITY >= 1.030 (1.005-1.030); URINE UROBILINOGEN 0.2 E.U./dl (0.2-1.0)
[2018-12-26 22:49] LABS: ABSOLUTE EOSINOPHILS 0.1 thou/uL (0.0-0.7); ABSOLUTE LYMPHOCYTES 1.9 thou/uL (0.8-5.3); ABSOLUTE MONOCYTES 0.7 thou/uL (0.0-1.2); ABSOLUTE NEUTROPHILS 3.4 thou/uL (1.6-8.1); BASOPHILS 0.8 %; EOSINOPHILS 1.8 %; HEMOGLOBIN 10.2 gm/dL (12.0-15.0); LYMPHOCYTES 30.6 %; MCV 78.2 fL (80.0-100.0); MONOCYTES 11.5 %; MPV 7.4 fl. (7.2-11.1); NUCLEATED RBCS 0 /100WBC; PLATELET COUNT* 470 thou/uL (150-400); POLYS 55.3 %; RDW-CV 15.2 % (10.5-14.5); WBC 6.1 thou/uL (4.0-11.0)
[2018-12-26 22:51] LABS: SQUAMOUS 4-10 Moderate /LPF (0-3); URINE WBC-REFLEX 0-5 Rare /HPF (0-5)
[2018-12-26 22:52] LABS: BACTERIA-REFLEX 1-9 Few /HPF (None Seen); CASTS None Seen /LPF (None Seen); CRYSTALS None Seen /LPF (None Seen); URINE RBC 0-2 Rare /HPF (0-2)
[2018-12-26 22:53] LABS: ANION GAP 15 mmol/L (7-16); BUN 12 mg/dL (7-18); CALCIUM 8.8 mg/dL (8.5-10.1); CHLORIDE 102 mmol/L (98-107); CO2 23 mmol/L (21-32); GLUCOSE 118 mg/dL (70-99); POTASSIUM 3.3 mmol/L (3.5-5.1); SODIUM 140 mmol/L (136-145)
[2018-12-26 23:03] LABS: ALBUMIN 3.2 g/dL (3.4-5.0); ALKALINE PHOSPHATASE 80 U/L (46-116); LIPASE 77 U/L (73-393); SGOT 19 U/L (15-37); SGPT 27 U/L (30-65); TOTAL BILIRUBIN 0.2 mg/dL (<0.1-1.0); TOTAL PROTEIN 7.7 g/dL (6.4-8.2); TROPONIN-I LEVEL <0.06 ng/mL (<0.06)
[2018-12-27] VITALS (7 sets, daily range): BP systolic 95–128; BP diastolic 55–75
--- NOTE | 2018-12-27 04:51 | NUR ---
RECIEVED PT FROM ED PER CART ACCOMPANIED BY DANIELLA MUNROE. PT IS AWAKE AND ORIENTED X4. VSS ON ROOM AIR. CRYSTAL MACHINING COORDINATOR PLACED- TRACING SR. PT DENIES N/V AT THIS TIME. PT C/O LEFT LOWER ABD PAIN PARTIALLY RELIEVED BY FENTANYL GIVEN PER OCT. SERUM K=3.3, K REPLACEMENT IN PROGRESS. ORIENTED PT TO ROOM SET UP, AND ON THE USE OF CALL LIGHT. HOURLY ROUNDING DONE FOR PT SAFETY.
--- NOTE | 2018-12-27 16:26 | NUR ---
assumed pt care report received from nurse pt is aox4 sr on cardiac rehabilitation program director. on ra. oxygen saturation is 98%. pt complains of pain at IV site during fluid infusion. three different staff members have tried to insert a new IV in pt. a total of three IVs have been inserted and pt complains of very bad pain for all three of them during flushing or when the IV pump is functioning. so pt antibitics have been on hold as well as her fluid. dr notified. infusion team is not available on weekends.pt tolorated her clear liquid diet well. pain pills received twice this shift for abdominal pain. zofran given as well once this am for nausea. pt has not complaint of nausea since last zofran dose this morning. will continue to monitor pt
[2018-12-28] VITALS: BP 107/68
--- NOTE | 2018-12-28 02:50 | NUR ---
RECIEVED REPORT AND ASSUMED CARE AT 1900. EXCEPTIONAL CHILDREN TEACHER IN PLACE. VITAL SIGNS STABLE. PT UP ADLIB. PT HAS ABD PAIN AND PRN PAIN MEDS GIVEN ORDERED. ASSESSMENT COMPLETED DISCUSSED PLAN OF CARE AND PT UNDERSTANDS. BED LOCKED AND CALL LIGHT WITHIN REACH. FALL PRECAUTIONS IN PLACE. HOURLY ROUNDING DONE AND ALL NEEDS MET. NURSING WILL CONTINUE TO MONITOR.
[2018-12-28 04:00] VITALS: BP 103/53
[2018-12-28 05:28] LABS: HEMATOCRIT 27.3 % (37.0-47.0); HEMOGLOBIN 9.1 gm/dL (12.0-15.0); MCH 26.1 pg (26.0-34.0); MCHC 33.3 g/dL (28.0-37.0); MCV 78.6 fL (80.0-100.0); MPV 7.9 fl. (7.2-11.1); RBC 3.47 mil/uL (4.20-5.00); RDW-CV 15.4 % (10.5-14.5); WBC 4.5 thou/uL (4.0-11.0)
[2018-12-28 05:53] LABS: CALCIUM 8.8 mg/dL (8.5-10.1); CREATININE 0.7 mg/dL (0.6-1.3); MAGNESIUM 1.7 mg/dL (1.8-2.4); POTASSIUM 4.1 mmol/L (3.5-5.1)
[2018-12-28 08:00] VITALS: BP 97/53
--- NOTE | 2018-12-28 10:16 | NUR ---
Pt is A&O. Resides at home with her kids. Active and independent. No DME. No hx of HH or SNF. Goal is home at de. No needs.
--- NOTE | 2018-12-28 11:01 | NUR ---
ASSUMED CARE OF PT AT 0730. PT RESTING IN BED. PT A&0X4, DENIES ANY PAIN, SHORTNESS OF BREATH OR NAUSEA AT THIS TIME. PT TRACING SR ON THE APPRENTICE COOK. ON RA SAT UPPER 90'S. PT UP AD BRITT IN ROOM. PT GOAL FOR TODAY IS ADVANCE DIET TOLERATED, IV ABX AND IVF, PAIN MGMT AND REPLACE MAGNESIUM PER ELECTROLYTE PROTOCOL. AM ASSESSMENT CHARTED. MEDICATIONS PER OCT. PT REPOSITIONS SELF. HOURLY ROUNDING OBSERVED. BED IN LOW POSITION. CALL LIGHT WITHIN REACH. WILL CONTINUE PLAN OF CARE.
[2018-12-28] MEDS ORDERED: MIRALAX17 GM PO (11:21)
[2018-12-28] MEDS ORDERED: FLAGYL500 M1 PO (11:21)
[2018-12-28] MEDS ORDERED: CIPRO500 MG PO (11:21)
[2018-12-28 11:46] VITALS: BP 97/53
[2018-12-28 11:53] VITALS: BP 106/64
--- NOTE | 2018-12-28 16:45 | NUR ---
DISCHARGE ORDERS RECEIVED. DISCHARGE INSTRUCTIONS, CARE NOTES, SCRIPTS AND FOLLOW UP APPTS GIVEN TO PT. PT COMMUNICATES UNDERSTANDING OF DISCHARGE TEACHING. IV AND BUS SYSTEM OPERATOR REMOVED. PT DISCHARGED WITH ALL BELONGINGS AND PAPERWORK VIA WHEELCHAIR WITH NURSING STAFF TO OWN PERSONAL VEHICLE.
--- NOTE | 2018-12-29 13:00 | EKG ---
[place] [address] ELECTROCARDIOGRAM REPORT Name: KIMMIE BEDOLLA Room: [address] IN ..#: [id number] Admission: 12/27/18 Attend Phys: Divya Ceballos MD Discharge: 12/28/18 Date of : 78 Report #: [id number] THIS REPORT FOR: //name// [facility] ED Test Date: 2018-12-26 Test Time: 22:29:20 Pat Name: KIMMIE BEDOLLA Department: Room: [facility] Gender: F [employer]er: EDITH : 1980 Requested By: Jorge Alberto Jackson Order Number: [id number] MD: Sourav Purvis Measurements Intervals [place] Rate: 86 P: 43 KS: 160 QRS: 12 QRSD: 104 T: 9 QT: 368 QTc: 440 Interpretive Statements Sinus rhythm Inferior infarct, old Compared to ECG 04/07/2018 22:21:57 no change Electronically Signed On 12-29-2018 13:00:05 CDT by Sourav Purvis [email or web address] <ELECTRONICALLY SIGNED> By: Sourav Purvis MD, FAC 12/29/18 1300 2229 28 Sourav Purvis MD, [facility] /EPI
== END 2018-12-28 17:13 | disposition home or self-care (01) | DRG 378 ==
LOC: M.ERS 22:10 → M.2W 12-27 00:42 → M.TBA-ER 12-27 00:42 → M.2W 12-27 00:58
PROVIDERS: Emergency Medicine Emergency Medical Services; Internal Medicine; ADMIT Internal Medicine
DX: K57.93 Diverticulitis of intestine, part unspecified, without perforation or abscess with bleeding (principal); Z68.43 Body mass index [BMI] 50.0-59.9, adult; R07.9 Chest pain, unspecified; K21.9 Gastro-esophageal reflux disease without esophagitis; E66.01 Morbid (severe) obesity due to excess calories; K64.9 Unspecified hemorrhoids; E86.9 Volume depletion, unspecified; G43.909 Migraine, unspecified, not intractable, without status migrainosus; Z98.891 History of uterine scar from previous surgery; Z91.041 Radiographic dye allergy status; Z88.8 Allergy status to other drugs, medicaments and biological substances

== ENCOUNTER → 2019-03-03 | Day surgery (SDC) | payer OTHER, MEDICAID ==
[~2019-03-03] MED LIST changes: +MIRALAX17 GM PO; +VALIUM5 MG PO
--- NOTE | ~2019-03-03 | PROC ---
[address] [address] PROCEDURE REPORT Name: KIMMIE BEDOLLA Room: [facility]..#: [id number] Admission: 03/03/19 Attend Phys: Richard Farrell MD Discharge: Date of : 78 Report #: [id number] THIS REPORT FOR: //name// For GI report, please see the Provation report in Perceptive 7 content. By: 1308Medical Records Staff UMESH /LILLIAN
[2019-03-03 10:35] LABS: HEMATOCRIT 34.9 % (37.0-47.0); HEMOGLOBIN 11.1 gm/dL (12.0-15.0)
--- NOTE | 2019-03-04 14:06 | PATH ---
[facility] [address] [place] [address] PATHOLOGY RPT PROCEDURE Name: LENNIE BEDOLLA Room: [facility] M.R.#: [id number] Admission: 03/03/19 Date of : 78 Discharge: Report #: [id number] Path Case #: [id number] Accession Number: [id number] . 01 Material submitted: . esophagus - ESOPHAGEAL BIOPSY R/O BARRETTS . 01 Clinical history: . Hx of esophagitis, hematochezia, Hx of diverticulitis, rule out Victoria's . 02 Diagnosis: Esophagus, biopsy: - Hyperplastic squamous epithelium with focal ulceration and moderate chronic inflammation. - Scant adjacent columnar epithelium with mild chronic inflammation and no evidence of intestinal metaplasia. . (MAOM:nguyễn; 03/04/2019) QLM/03/04/2019 . 02 Electronically signed: . Dorian Figueroa MD, Pathologist NPI- [id number] . 01 Gross description: . Received in formalin labeled "Lennie Bedolla, esophageal biopsy," are 3 segments of vigil soft tissue measuring 0.8 x 0.5 x 0.1 cm in aggregate dimensions and ranging from 0.2 to 0.3 cm in maximum dimension. The specimen is submitted entirely in cassette A1. (TSD; 03/03/2019) TOB/TOB . 02 Pathologist provided ICD-10: K22.10, K20.9 . 02 CPT . 394611 Specimen Comment: A courtesy copy of this report has been sent to Specimen Comment: [phone], . Specimen Comment: Report sent to / DR TERRAZAS Performed at: 01 [facility] [address], [place], [place] [id number] MD Fawad Owens MD Phone: [phone] Performed at: [address] [address] [place], [place] [id number] MD Berlin Casarez MD Phone: [phone]
== END | disposition home or self-care (01) ==
LOC: M.SUR 10:13
PROVIDERS: Internal Medicine Gastroenterology
DX: K57.30 Diverticulosis of large intestine without perforation or abscess without bleeding (principal); K64.8 Other hemorrhoids; K21.0 Gastro-esophageal reflux disease with esophagitis; K22.10 Ulcer of esophagus without bleeding; K44.9 Diaphragmatic hernia without obstruction or gangrene; Z98.890 Other specified postprocedural states; Z91.041 Radiographic dye allergy status; Z79.899 Other long term (current) drug therapy; Z88.8 Allergy status to other drugs, medicaments and biological substances

== ENCOUNTER → 2019-04-27 | Outpatient (CLI) | payer OTHER, MEDICAID | LOC: M.CT 04-21 11:30 | DX: M48.56XD Collapsed vertebra, not elsewhere classified, lumbar region, subsequent encounter for fracture with routine healing (principal); R91.8 Other nonspecific abnormal finding of lung field; G43.909 Migraine, unspecified, not intractable, without status migrainosus; E66.01 Morbid (severe) obesity due to excess calories; Z72.89 Other problems related to lifestyle; Z79.899 Other long term (current) drug therapy ==

== ENCOUNTER 2019-08-30 09:00 | Inpatient (IN) | payer OTHER, MEDICAID ==
[~2019-08-30] VITALS: Ht 157.5 cm; Wt 127.0 kg
[2019-08-30 09:12] VITALS: BP 123/68
[2019-08-30] MEDS ORDERED: DIAMOX (09:18)
[2019-08-30] MEDS ORDERED: CIPRO250 M2 PO (09:19)
[2019-08-30] MEDS ORDERED: FLAGYL500 M1 PO (09:19)
[2019-08-30 09:40] LABS: URINE BILIRUBIN NEGATIVE (Negative); URINE BLOOD NEGATIVE (Negative); URINE CLARITY CLEAR; URINE COLOR YELLOW; URINE GLUCOSE-RANDOM NEGATIVE (Negative); URINE KETONES NEGATIVE (Negative); URINE LEUKOCYTES-REFLEX NEGATIVE (Negative); URINE NITRITE-REFLEX NEGATIVE (Negative); URINE PROTEIN NEGATIVE (Negative); URINE SPECIFIC GRAVITY >= 1.030 (1.005-1.030); URINE UROBILINOGEN 0.2 E.U./dl (0.2-1.0)
[2019-08-30 09:52] LABS: HEMOGLOBIN 9.7 gm/dL (12.0-15.0); MCH 25.2 pg (26.0-34.0); RBC 3.84 mil/uL (4.20-5.00); WBC 6.6 thou/uL (4.0-11.0)
[2019-08-30 09:54] LABS: ABSOLUTE BASOPHILS 0.1 thou/uL (0.0-0.2); ABSOLUTE EOSINOPHILS 0.1 thou/uL (0.0-0.7); ABSOLUTE LYMPHOCYTES 1.4 thou/uL (0.8-5.3); ABSOLUTE MONOCYTES 0.6 thou/uL (0.0-1.2); ABSOLUTE NEUTROPHILS 4.4 thou/uL (1.6-8.1); BASOPHILS 1.5 %; EOSINOPHILS 2.2 %; HEMATOCRIT 29.4 % (37.0-47.0); LYMPHOCYTES 20.6 %; MCHC 32.9 g/dL (28.0-37.0); MCV 76.6 fL (80.0-100.0); MONOCYTES 8.7 %; MPV 6.9 fl. (7.2-11.1); NUCLEATED RBCS 0 /100WBC; PLATELET COUNT* 363 thou/uL (150-400); RDW-CV 16.7 % (10.5-14.5)
[2019-08-30 10:07] LABS: CALCIUM 8.3 mg/dL (8.5-10.1); CREATININE 0.7 mg/dL (0.6-1.3); POTASSIUM 3.9 mmol/L (3.5-5.1)
[2019-08-30 10:14] LABS: ALBUMIN 2.9 g/dL (3.4-5.0); TOTAL BILIRUBIN 0.1 mg/dL (<0.1-1.0); TOTAL PROTEIN 7.1 g/dL (6.4-8.2)
[2019-08-30 14:08] VITALS: BP 102/59
[2019-08-30 14:30] VITALS: BP 119/75
[2019-08-30] MEDS ORDERED: OMEPRAZOLE40 MG PO (15:10)
[2019-08-30 22:46] VITALS: BP 116/70
[2019-08-31 05:36] LABS: ABSOLUTE EOSINOPHILS 0.1 thou/uL (0.0-0.7); ABSOLUTE LYMPHOCYTES 1.2 thou/uL (0.8-5.3); ABSOLUTE MONOCYTES 0.5 thou/uL (0.0-1.2); ABSOLUTE NEUTROPHILS 3.3 thou/uL (1.6-8.1); BASOPHILS 0.7 %; HEMATOCRIT 25.7 % (37.0-47.0); HEMOGLOBIN 8.6 gm/dL (12.0-15.0); LYMPHOCYTES 24.3 %; MCH 25.6 pg (26.0-34.0); MCHC 33.4 g/dL (28.0-37.0); MCV 76.6 fL (80.0-100.0); MONOCYTES 9.3 %; MPV 7.9 fl. (7.2-11.1); NUCLEATED RBCS 0 /100WBC; PLATELET COUNT* 302 thou/uL (150-400); POLYS 63.7 %; RBC 3.36 mil/uL (4.20-5.00); RDW-CV 16.4 % (10.5-14.5); WBC 5.1 thou/uL (4.0-11.0)
[2019-08-31 05:44] LABS: CALCIUM 7.9 mg/dL (8.5-10.1); CREATININE 0.6 mg/dL (0.6-1.3); POTASSIUM 3.5 mmol/L (3.5-5.1)
[2019-08-31 08:14] VITALS: BP 112/66
[2019-08-31 08:20] VITALS: BP 112/66
[2019-08-31 16:00] VITALS: BP 116/72
[2019-08-31 22:26] VITALS: BP 96/51
[2019-09-01 07:13] LABS: ALBUMIN 2.5 g/dL (3.4-5.0); ALKALINE PHOSPHATASE 97 U/L (46-116); ANION GAP 8 mmol/L (7-16); BUN 7 mg/dL (7-18); CALCIUM 7.6 mg/dL (8.5-10.1); CHLORIDE 106 mmol/L (98-107); CO2 26 mmol/L (21-32); CREATININE 0.7 mg/dL (0.6-1.3); GLUCOSE 86 mg/dL (70-99); SGOT 12 U/L (15-37); SGPT 20 U/L (30-65); SODIUM 140 mmol/L (136-145); TOTAL BILIRUBIN 0.2 mg/dL (<0.1-1.0)
[2019-09-01 08:08] LABS: ABSOLUTE EOSINOPHILS 0.1 thou/uL (0.0-0.7); ABSOLUTE MONOCYTES 0.4 thou/uL (0.0-1.2); ABSOLUTE NEUTROPHILS 2.6 thou/uL (1.6-8.1); BASOPHILS 1.1 %; EOSINOPHILS 1.8 %; HEMOGLOBIN 8.4 gm/dL (12.0-15.0); LYMPHOCYTES 24.9 %; MCH 25.1 pg (26.0-34.0); MCHC 32.5 g/dL (28.0-37.0); MCV 77.1 fL (80.0-100.0); MONOCYTES 9.8 %; MPV 7.2 fl. (7.2-11.1); NUCLEATED RBCS 0 /100WBC; PLATELET COUNT* 295 thou/uL (150-400); POLYS 62.4 %; RBC 3.37 mil/uL (4.20-5.00); RDW-CV 16.1 % (10.5-14.5); WBC 4.2 thou/uL (4.0-11.0)
[2019-09-01 08:15] VITALS: BP 124/81
[2019-09-01 08:36] VITALS: BP 124/81
[2019-09-01 08:54] LABS: % SATURATION 9 % (20-39); IRON 23 ug/dL (50-175)
[2019-09-01 09:26] LABS: ESR (SEDRATE) 63 mm/hr (0-20)
[2019-09-01] MEDS ORDERED: AUGMENTIN 875-1 EACH PO (12:58)
[2019-09-01] MEDS ORDERED: NORCO 5-325 TA1 EAC1 PO (13:05)
[2019-09-01 16:00] VITALS: BP 120/73
--- NOTE | 2019-09-01 18:08 | CON ---
[address] [address] CONSULTATION Name: CHIOMAKIMMIE INDIGO Room: [address] IN M.R.#: [id number] Admission: 08/30/19 Attend Phys: Garth Turcios MD Discharge: Date of : 78 Report #: [id number] THIS REPORT FOR: //name// CC: Garth Prasad DO DICTATED BY: Cindy Silveira [facility] DATE OF SERVICE: 08/31/2019 Please note at the time of this dictation, the patient was seen and physically examined by myself. REASON FOR CONSULTATION: Left lower quadrant pain, recurrent diverticulitis. HISTORY OF PRESENT ILLNESS: This is a 38-year-old female who is known to our practice, who began having some left lower quadrant pain approximately 2 weeks ago, it progressively got worse with some added nausea. She called our office on the and also her PCP's office and both of us began to treat her with Cipro and Flagyl that was called out for her for suspecting diverticulitis. The patient states that she improved for a couple of days and then started noticing fever and chills and her pain seemed to be getting worse. She thought maybe she was getting UTI. She was going to the bathroom more frequently, but given that she was just not feeling well, because the pain did get worse, prompted her to come in to be seen. The patient did undergo an EGD and colonoscopy back in 02/2019 that showed grade B esophagitis and irregular Z-line. Biopsy showed of the EGD hyperplastic focal ulceration and moderate chronic ulceration with no evidence of any intestinal metaplasia. Colon showed diverticulosis throughout very severe, no inking was done and nonbleeding internal hemorrhoids. She was due for a repeat EGD in 6 months, but she has not scheduled that yet because of her current problem. The patient states she was told by Dr. Farrell that there was nowhere to ink because her diverticulosis is so extensive. ALLERGIES: CONTRAST DYE, TOPAMAX. MEDICATIONS FROM HOME: Include nortriptyline, omeprazole b.i.d., Diamox. PAST MEDICAL HISTORY: Migraines, history of diverticulitis and esophagitis. PAST SURGICAL HISTORY: Jaw surgery and . FAMILY HISTORY: Great maternal grandmother with endometrial cancer. SOCIAL HISTORY: Denies any alcohol, tobacco [place] [address] CONSULTATION Name: KIMMIE BEDOLLA Room: [address] IN [facility]#: [id number] Admission: 08/30/19 Attend Phys: Garth Turcios MD Discharge: Date of : 78 Report #: [id number] REVIEW OF SYSTEMS: Twelve-point review of systems is essentially negative except what is mentioned in the HPI. PHYSICAL EXAMINATION: VITAL SIGNS: Temperature 37, pulse 87, respirations 17, blood pressure 112/66. HEART: Regular rate and rhythm. LUNGS: Diminished, but clear. ABDOMEN: Soft, positive bowel sounds in all 4 quadrants with some tenderness noted in the left lower quadrant. LABORATORY DATA: Hemoglobin is 8.6, white count 5.1, platelets 302. GFR is 111. CT showed at the junction of the descending and sigmoid colon, more severe diverticulitis that was noted the previous year. IMPRESSION: 1. Abdominal pain, left lower quadrant. 2. Some nausea. 3. Anemia. 4. Esophagitis due for repeat EGD in 6 months. 5. Family history of endometrial cancer, maternal side. PLAN: 1. Continue current antibiotics. 2. Clear liquids to see how she does. 3. If she tolerates well, we will place her on a low-residue diet and have the dietitian come and see her. Thank you for allowing us to participate in this patient's care. Please do not hesitate to call with any questions in regard to this consult. <ELECTRONICALLY SIGNED> By: Jared Finn DO 09/01/19 1808 1209 [id number] Finn DO /nt
[2019-09-01 20:15] VITALS: BP 109/66
[2019-09-02 08:00] VITALS: BP 103/64
[2019-09-02 12:17] LABS: IgA 195 mg/dL (87-352); IgG 1128 mg/dL (700-1600)
[2019-09-02 15:01] VITALS: BP 103/64
[2019-09-02 16:38] VITALS: BP 103/64
[2019-09-03 15:08] LABS: GLIADIN IGA AB 3 units (0-19)
== END 2019-09-02 15:50 | disposition home or self-care (01) | DRG 392 ==
LOC: M.ERS 09:00 → M.TBA-ER 12:20 → M.3W 12:20
PROVIDERS: Family Medicine; Internal Medicine Gastroenterology; ADMIT Internal Medicine
DX: K57.92 Diverticulitis of intestine, part unspecified, without perforation or abscess without bleeding (principal); G43.909 Migraine, unspecified, not intractable, without status migrainosus; D64.9 Anemia, unspecified; K20.9 Esophagitis, unspecified; N93.8 Other specified abnormal uterine and vaginal bleeding; Z88.8 Allergy status to other drugs, medicaments and biological substances; Z91.041 Radiographic dye allergy status; Z80.8 Family history of malignant neoplasm of other organs or systems; Z79.899 Other long term (current) drug therapy